=== PATIENT | male | born 1955 | race Caucasian/White ===

== ENCOUNTER → 2024-05-28 10:05 | Outpatient (REF) | payer OTHER, MEDICARE, SELFPAY | LOC: RAD 10:05 | PROVIDERS: ATTENDING PHYSICIAN Internal Medicine Cardiovascular Disease; FAMILY PHYSICIAN Family Medicine | DX: I10 Essential (primary) hypertension (principal); Z82.49 Family history of ischemic heart disease and other diseases of the circulatory system | CPT/HCPCS: 75571; 93306 ==

== ENCOUNTER → 2024-05-29 09:29 | Outpatient (REF) | payer OTHER, MEDICARE, SELFPAY | LOC: RCS 09:29 | PROVIDERS: ATTENDING PHYSICIAN Internal Medicine Cardiovascular Disease; FAMILY PHYSICIAN Family Medicine | DX: R06.09 Other forms of dyspnea (principal) | CPT/HCPCS: 93017 ==